=== PATIENT | male | born 1940 | race Caucasian/White ===

== ENCOUNTER → 2018-08-28 09:49 | Outpatient (BNVA) | payer MEDICARE, BC, SELFPAY | PROVIDERS: PCP Family Medicine; Visit Provider Urology | DX: R35.1 Nocturia (principal) | CPT/HCPCS: 99213 ==

== ENCOUNTER 2018-10-06 15:21 | Outpatient (CLI) | payer MEDICARE, BC, SELFPAY ==
--- NOTE | 2018-10-06 13:32 | DI.RAD_ITS ---
SYMPTOM/DIAGNOSIS: KNEE PAIN RIGHT KNEE: Three views. Comparison 05/28/16 Moderately severe narrowing is again seen of the medial femoral tibial joint space. There is periarticular spurring involving all three joint compartments. Chondrocalcinosis is present. There is a small suprapatellar joint effusion. Vascular calcifications are present. IMPRESSION: Moderate degenerative changes of the right knee.
== END 2018-10-06 15:41 ==
PROVIDERS: PCP Family Medicine; Referring Provider Family Medicine; Visit Provider Student in an Organized Health Care Education/Training Program
DX: M25.561 Pain in right knee (principal); M25.461 Effusion, right knee; M17.11 Unilateral primary osteoarthritis, right knee
CPT/HCPCS: 73562; 99213

== ENCOUNTER 2018-12-24 01:22 | Outpatient (CLI) | payer MEDICARE, BC, SELFPAY ==
[2018-12-24 12:32] LABS: CREATININE 1.01 mg/dL (0.70-1.30)
[2018-12-24] MEDS: Omnipaque 350 MG/ML 100 ML BTL IJ (13:10)
[2018-12-24] MEDS: Omnipaque 350 MG/ML 50 ML BTL IJ (13:11)
--- NOTE | 2018-12-24 13:12 | DI.CT_ITS ---
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 TECHNIQUE: Routine noncontrast and postcontrast CTA. COMPARISON: MRI - BRAIN WO CONTRAST from 06/28/2017 FINDINGS: There is mild atrophy and mild white changes of small vessel disease. The ventricles are normal in size. No skull fracture is seen. There is a mucous retention cyst or polyp in the left maxillary si nus. The mastoid air cells are clear. There is mild calcification at the right common carotid bulb. There is no evidence of significant ca rotid stenosis or evidence of dissection. The vertebral arteries are normal in diameter. The intrac ranial vasculature shows no evidence of significant stenosis. No aneurysm is identified. There are no abnormal enhancing lesions. The parotid, submandibular and thyroid glands are unremarkable. Uppe r lobes appear clear. Degenerative changes of the cervical spine. IMPRESSION: No evidence of aneurysm or significant stenosis.
== END 2018-12-24 01:42 ==
PROVIDERS: PCP Family Medicine; Visit Provider Family Medicine
DX: I67.1 Cerebral aneurysm, nonruptured (principal); G31.89 Other specified degenerative diseases of nervous system; R90.82 White matter disease, unspecified
CPT/HCPCS: 70496; 70498; 82565; J3490; Q9967

== ENCOUNTER → 2019-02-19 13:07 | Outpatient (BNVA) | payer MEDICARE, BC, SELFPAY | PROVIDERS: PCP Family Medicine; Referring Provider Family Medicine; Visit Provider Student in an Organized Health Care Education/Training Program | DX: M17.11 Unilateral primary osteoarthritis, right knee (principal) | CPT/HCPCS: 20610; 99213; J1040 ==

== ENCOUNTER 2019-06-11 11:36 | Outpatient (CLI) | payer MEDICARE, BC, SELFPAY ==
--- NOTE | 2019-06-11 11:30 | DI.RAD_ITS ---
EXAM: XR KNEE LT 3V AP,LAT,BERNA CLINICAL HISTORY: PAIN. TECHNIQUE: 2D digital imaging was performed. COMPARISON: XR knee RT 3V AP,lat,berna from 10/06/2018 FINDINGS: BONES: No acute fracture is present. No bony destructive lesion is seen. JOINTS: The knee is normally aligned. No joint effusion is seen. Mild degenerative changes are presen t characterized by mild periarticular spurring of the posterior patella and mild narrowing of the med ial femoral tibial joint space. SOFT TISSUE: Atherosclerosis. IMPRESSION: Mild degenerative changes of the left knee. DATA REPOSITORY: RADIATION DOSE DELIVERED:
== END 2019-06-11 11:56 ==
PROVIDERS: PCP Family Medicine; Referring Provider Family Medicine; Visit Provider Student in an Organized Health Care Education/Training Program
DX: M25.562 Pain in left knee (principal); M17.12 Unilateral primary osteoarthritis, left knee; M17.11 Unilateral primary osteoarthritis, right knee
CPT/HCPCS: 20610; 73562; 99214; J1040

== ENCOUNTER → 2019-10-22 10:35 | Outpatient (BNVA) | payer MEDICARE, BC, SELFPAY | PROVIDERS: PCP Family Medicine; Referring Provider Family Medicine; Visit Provider Student in an Organized Health Care Education/Training Program | DX: M17.12 Unilateral primary osteoarthritis, left knee (principal); M17.11 Unilateral primary osteoarthritis, right knee | CPT/HCPCS: 20610; 99213; J1040 ==

== ENCOUNTER 2019-11-06 16:16 | Outpatient (REF) | payer MEDICARE, BC, SELFPAY ==
[2019-11-06 21:27] LABS: Calculated LDL 94 mg/dL (<100); Cholesterol 172 mg/dL (<200); HDL Cholesterol 48 mg/dL (40-60); Triglyceride 152 mg/dL (<150)
== END 2019-11-06 16:36 ==
LOC: NCHCN 16:16
PROVIDERS: PCP Family Medicine; Visit Provider Family Medicine
DX: E78.5 Hyperlipidemia, unspecified (principal); I67.9 Cerebrovascular disease, unspecified
CPT/HCPCS: 80061

== ENCOUNTER → 2019-11-17 11:23 | Outpatient (BNVA) | payer MEDICARE, BC, SELFPAY | PROVIDERS: PCP Family Medicine; Referring Provider Family Medicine; Visit Provider Urology | DX: N40.1 Benign prostatic hyperplasia with lower urinary tract symptoms (principal); R35.1 Nocturia | CPT/HCPCS: 99213 ==

== ENCOUNTER → 2020-02-15 14:07 | Outpatient (BNVA) | payer MEDICARE, BC, SELFPAY | PROVIDERS: PCP Family Medicine; Referring Provider Family Medicine; Visit Provider Student in an Organized Health Care Education/Training Program | DX: M17.11 Unilateral primary osteoarthritis, right knee (principal) | CPT/HCPCS: 20610; 99213; J1040 ==

== ENCOUNTER → 2020-05-16 12:43 | Outpatient (BNVA) | payer MEDICARE, BC, SELFPAY | PROVIDERS: PCP Family Medicine; Referring Provider Family Medicine; Visit Provider Student in an Organized Health Care Education/Training Program | DX: M17.11 Unilateral primary osteoarthritis, right knee (principal) | CPT/HCPCS: 20610; J1040 ==

== ENCOUNTER 2020-08-22 15:23 | Outpatient (CLI) | payer MEDICARE, BC, SELFPAY ==
--- NOTE | 2020-08-22 13:30 | DI.RAD_ITS ---
Exam(s) XR STANDING ALIGNMENT EXAM: XR STANDING ALIGNMENT CLINICAL HISTORY: eval alignment, presurgical. TECHNIQUE: 2D digital imaging was performed. COMPARISON: No exams were available for comparison FINDINGS: The hips are well maintained. In the right knee, there is moderate medial joint compartment narrowin g. Periarticular spurring is seen both medially and laterally. In the left knee, there is mild narr owing of the medial femoral tibial joint space with mild periarticular spurring. The ankles are well maintained. Portions of the ankle are obscured. Atherosclerosis. IMPRESSION: Osteoarthritis of the knees bilaterally. DATA REPOSITORY: RADIATION DOSE DELIVERED:
== END 2020-08-22 15:24 | disposition home or self-care (01) ==
LOC: DIORS 15:24
PROVIDERS: PCP Family Medicine; Referring Provider Family Medicine; Visit Provider Student in an Organized Health Care Education/Training Program
DX: M17.11 Unilateral primary osteoarthritis, right knee (principal); M17.12 Unilateral primary osteoarthritis, left knee
CPT/HCPCS: 99213; 77073

== ENCOUNTER 2020-09-05 02:37 | Outpatient (CLI) | payer MEDICARE, BC, SELFPAY ==
[2020-09-05 11:57] LABS: Source Nasal/Nares
[2020-09-05 14:48] LABS: COVID-19 PCR Negative (Negative)
== END 2020-09-05 02:38 | disposition home or self-care (01) ==
PROVIDERS: PCP Family Medicine; Visit Provider Student in an Organized Health Care Education/Training Program
DX: Z20.822 Contact with and (suspected) exposure to COVID-19 (principal); Z01.818 Encounter for other preprocedural examination
CPT/HCPCS: 87635

== ENCOUNTER 2020-09-05 03:20 | Outpatient (CLI) | payer MEDICARE, BC, SELFPAY ==
[2020-09-05 11:26] LABS: HCT 40.5 % (40.0-50.0); HGB 13.4 g/dL (13.5-17.5); MCH 32.6 pg (27.0-33.0); MCHC 33.1 % (32.0-36.0); MCV 98.5 fL (80-95); MPV 9.7 fL (8.0-11.0); Platelet Count 261 10^3/uL (130-400); RBC 4.11 10^6/uL (4.36-5.78); RDW 13.2 % (11.8-14.1); WBC 7.68 10^3/uL (4.4-10.8)
[2020-09-05 12:38] LABS: Anion Gap 7.8 mmol/L (3-11); BUN 14 mg/dL (7-18); CO2 29.2 mmol/L (21.0-32.0); CREATININE 1.1 mg/dL (0.70-1.30); Calcium 9.1 mg/dL (8.5-10.1); Chloride 108 mmol/L (98-107); Glucose 104 mg/dL (74-106); Potassium 4.3 mmol/L (3.5-5.1); Sodium 145 mmol/L (136-145)
== END 2020-09-05 03:21 | disposition home or self-care (01) ==
LOC: LBO 03:20
PROVIDERS: PCP Family Medicine; Visit Provider Student in an Organized Health Care Education/Training Program
DX: M25.561 Pain in right knee (principal); M17.11 Unilateral primary osteoarthritis, right knee; Z01.818 Encounter for other preprocedural examination; Z01.812 Encounter for preprocedural laboratory examination
CPT/HCPCS: 36415; 80048; 85027; 87635

== ENCOUNTER 2020-09-07 05:49 | Day surgery (SDC) | payer MEDICARE, BC, SELFPAY ==
[2020-09-07] VITALS (10 sets, daily range): BP systolic 120–135; BP diastolic 49–83; PULSE 68–87; RESP 15–21; TEMP 36.2–36.7; O2SAT 92–98; BMI 32.8
[2020-09-07] MEDS: Acetaminophen 500 MG TAB 1000 MG PO (06:15)
[2020-09-07] MEDS: Gabapentin 300 MG CAP PO (06:15)
[2020-09-07] MEDS: Celecoxib 200 MG CAP 400 MG PO (06:16)
[2020-09-07] MEDS: Lactated Ringers 1,000 ML 80 ML IV (06:16)
--- NOTE | 2020-09-07 06:34 | W.ANESPRE ---
General Info Date of Service Date Performed: 09/07/20 Height: 5 ft 6 in Weight: 92.2 kg Body Mass Index (BMI): 32.8 Surgical Procedure: Operation Date: 09/07/20 07:40 Proposed Procedures Side Surgeon p Knee Total Arthroplasty Right Lalit Dwyer MD Meds Allergies and Home Medications Allergies Allergy/AdvReac Type Severity Reaction Status Date / Time No Known Allergies Allergy Unverified 09/07/20 06:05 Home Medication Medication Instructions Recorded clopidogrel 75 mg PO DAILY tab-cap 05/25/14 escitalopram oxalate [Lexapro] 20 mg PO DAILY tab-cap 05/25/14 atorvastatin 40 mg tablet 40 mg PO HS 09/01/20 buspirone 15 mg tablet 22.5 mg PO BID tab-cap 09/01/20 memantine 10 mg tablet 10 mg PO BID 09/01/20 mirtazapine 15 mg tablet 15 mg PO DAILY 09/01/20 Current Visit Medications: Current Medications Generic Name Dose Route Start Last Admin Trade Name Freq PRN Reason Stop Dose Admin Acetaminophen 1,000 mg 09/07/20 06:00 09/07/20 06:15 Acetaminophen 500 Mg Tab PO 09/07/20 16:00 1,000 mg PREOP JOVAN Administration Celecoxib 400 mg 09/07/20 06:00 09/07/20 06:16 Celecoxib 200 Mg Cap PO 09/07/20 16:00 400 mg PREOP JOVAN Administration Gabapentin 300 mg 09/07/20 06:00 09/07/20 06:15 Gabapentin 300 Mg Cap PO 09/07/20 16:00 300 mg PREOP JOVAN Administration Tranexamic Acid 1,000 mg/ 60 mls @ 360 mls/hr 09/07/20 06:00 Sodium Chloride IVPB 09/07/20 16:00 PREOP JOVAN Tranexamic Acid 1,000 mg/ 60 mls @ 360 mls/hr 09/07/20 06:00 Sodium Chloride IVPB 09/07/20 16:00 DIRECTED JOVAN Ringer's Solution 1,000 mls @ 80 mls/hr 09/07/20 06:00 09/07/20 06:16 IV 10/06/20 23:59 80 mls/hr INFUSION JOVAN Administration Cefazolin Sodium/Dextrose 2 gm in 50 mls @ 100 mls/hr 09/07/20 06:00 Ancef Duplex IVPB 09/07/20 16:00 PREOP JOVAN IV Miscellaneous Supplies 1 each 09/07/20 06:00 Iv Access IV 10/06/20 23:59 DIRECTED JOVAN Sodium Chloride 0 ml 09/07/20 06:00 Normal Saline Flush 10 Ml Syr IV 10/06/20 23:59 PRN PRN Sodium Chloride 0 ml 09/07/20 06:00 Normal Saline 10 Ml Vial IJ 10/06/20 23:59 DIRECTED PRN Sterile Water 0 ml 09/07/20 06:00 Water,Injection,Sterile 10 Ml Vial IJ 10/06/20 23:59 DIRECTED PRN PFSH Active Problems Active Problems: Problem Status Onset Code Osteoarthritis of left knee M17.12 Primary localized osteoarthritis of right knee M17.11 Medical History Medical History Carpal tunnel syndrome on both sides (05/25/14) Frequency of urination (07/06/15) Nocturia more than twice per night (07/06/15) Osteoarthritis of left knee Tendinitis of both rotator cuffs (12/19/16) TIA (transient ischemic attack) Surgical History Surgical History Shoulder Manipulation Tobacco Smoking/Tobacco Use Status: Former Tobacco Use Alcohol Alcohol Intake: never Substance Use Substance use: Never Substance use type: does not use Vital Signs and Lab Results Vital Signs Most Recent Vital Signs in EMR: Most Recent Vital Signs Temp Pulse Resp BP Pulse Ox 36.6 C 68 18 134/80 95 09/07/20 06:00 09/07/20 06:00 09/07/20 06:00 09/07/20 06:00 09/07/20 06:00 Lab Results Blood Type / Crossmatch: No Data to Display Complete Blood Count: White Blood Count 7.68 10^3/uL (4.4-10.8) 09/05/20 11:05 09/05/20 Red Blood Count 4.11 10^6/uL (4.36-5.78) L 09/05/20 11:05 09/05/20 Hemoglobin 13.4 g/dL (13.5-17.5) L 09/05/20 11:05 09/05/20 Hematocrit 40.5 % (40.0-50.0) 09/05/20 11:05 09/05/20 Platelet Count 261 10^3/uL (130-400) 09/05/20 11:05 09/05/20 Complete Metabolic Panel: Sodium Level 145 mmol/L (136-145) 09/05/20 11:05 09/05/20 Potassium Level 4.3 mmol/L (3.5-5.1) 09/05/20 11:05 09/05/20 Chloride Level 108 mmol/L (98-107) H 09/05/20 11:05 09/05/20 Carbon Dioxide Level 29.2 mmol/L (21.0-32.0) 09/05/20 11:05 09/05/20 Blood Urea Nitrogen 14 mg/dL (7-18) 09/05/20 11:05 09/05/20 Creatinine 1.1 mg/dL (0.70-1.30) 09/05/20 11:05 09/05/20 Estimated GFR/1.73 m2 >= 60.00 (mL/min/1.73m2) 09/05/20 11:05 09/05/20 Calcium Level 9.1 mg/dL (8.5-10.1) 09/05/20 11:05 09/05/20 Glucose Level 104 mg/dL (74-106) 09/05/20 11:05 09/05/20 Liver Function Panel: No Data to Display Coagulation Panel: No Data to Display Cardiac Panel: No Data to Display Arterial Blood Gas: No Data to Display Venous Blood Gas: No Data to Display Pancreas Panel: No Data to Display Thyroid Panel: No Data to Display Infectious Disease: Coronavirus (COVID-19)(PCR) Negative (Negative) 09/05/20 10:48 09/05/20 Coronavirus 2019 Source Nasal/Nares 09/05/20 10:48 09/05/20 Blood Cultures: No Data to Display Toxicology Panel: No Data to Display Imaging and Studies Imaging and Studies Stress Test Summary: 05/20/14:Negative for ischemia. CT Summary: 12/24/18: CTA Head & Neck: MPRESSION: No evidence of aneurysm or significant stenosis. 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 No evidence of an acute infarct or intracranial mass. Anesthesia Assessment and Plan Anesthesia History Personal History: No History of General Anesthesia Family History: No Family History of Anesthesia Complications Exercise Tolerance Exercise Tolerance: Metabolic Equivalents>4 Pertinent Negatives Pertinent Negatives: No Symptoms of GERD, No Major Cardiovascular Symptoms or Complaints (Last plavix 09/02), No Major Pulmonary Symptoms or Complaints (LEONILA Cpap compliant. ) and No History of CVA/TIA (hx of TIA x1 no other incidences, no residual symptoms ) Cardiac & Pulmonary Exam Cardiac Exam: Normal S1/S2 Heart Sounds Pulmonary Exam: Clear Bilateral Breath Sounds Airway Exam Known Difficult Airway: No Mallampati Class: 3 Mouth Opening: Narrow (< 3cm) Thyromental Distance: Less than 3 cm Neck Range of Motion: Full ROM Neck Circumference: Thick Teeth Condition: Normal Dentition ASA Classification ASA Score: ASA 3 Emergency Case?: No NPO Status NPO Status: NPO Clears >2 hours, Solids >8 hours Anesthesia Plan Resuscitation Status: Full Code Anesthesia Technique: Spinal Anesthesia Airway Planned: Natural Airway Monitors Used: Standard Monitors
--- NOTE | 2020-09-07 07:32 | W.PM.DS.N ---
Date of service: 09/07/20 DS: Diagnosis Discharge Diagnosis (1) Primary localized osteoarthritis of right knee: Status: Acute Discharge Plan Disposition Patient Disposition: HOME Condition: Stable Discharge Details Reason For Visit: Right TKA Attending Provider: Lalit Dwyer Primary Care Provider: Parker Valdivia Home Meds and New Rx's Prescriptions: No Action atorvastatin 40 mg tablet 40 mg PO HS RF: 0 mirtazapine 15 mg tablet 15 mg PO DAILY RF: 0 memantine 10 mg tablet 10 mg PO BID RF: 0 clopidogrel 75 MG tablet 75 mg PO DAILY RF: 0 escitalopram oxalate [Lexapro] 20 MG tablet 20 mg PO DAILY RF: 0 buspirone 15 mg tablet 22.5 mg PO BID RF: 0 DS: Data Vitals/I&O Vitals and I&O: Vital Signs Temperature 97.9 F 09/07/20 06:00 Pulse 68 09/07/20 06:00 Pulse Rhythm Regular 09/07/20 06:00 Respiratory Rate 18 09/07/20 06:00 Respiratory Depth Normal 09/07/20 06:00 Blood Pressure 134/80 09/07/20 06:00 Pulse Oximetry 95 09/07/20 06:00 Oxygen Delivery Method Room Air 09/07/20 06:00 Oxygen Flow Rate 0 09/07/20 06:00 Intake & Output 09/06/20 09/06/20 09/07/20 11:59 23:59 11:59 Weight 203 lb 4.259 oz PFSH Medical History Carpal tunnel syndrome on both sides (05/25/14) Frequency of urination (07/06/15) Nocturia more than twice per night (07/06/15) Osteoarthritis of left knee Tendinitis of both rotator cuffs (12/19/16) TIA (transient ischemic attack) Surgical History Shoulder Manipulation Family History Mother Colon cancer Father Lung cancer Social History Smoking/Tobacco Use Status: Former Tobacco Use Quit Date: 03/18/00 Smoking risk assessment performed?: Yes Alcohol Intake: never Drug use: Never Substance use type: does not use Additional Social history: Unable to assess joellen
--- NOTE | 2020-09-07 07:35 | PDOC.DSDIS_ITS ---
Documented by User: CHELSEY Alvarez 09/07/20 07:36 Discharge Plan Disposition Patient Disposition: HOME Condition: Stable Discharge Details Reason For Visit: Right TKA Attending Provider: Lalit Dwyer Primary Care Provider: Parker Valdivia Home Meds and New Rx's Prescriptions: New celecoxib [Celebrex] 200 mg capsule 200 mg PO BID Qty: 60 RF: 0 aspirin 81 mg tablet,delayed release (DR/EC) 81 mg PO BID Qty: 60 RF: 0 acetaminophen [Tylenol Extra Strength] 500 mg tablet 500 mg PO Q6H PRNQty: 90 RF: 0 pantoprazole [Protonix] 40 mg tablet,delayed release (DR/EC) 40 mg PO DAILY Qty: 30 RF: 0 gabapentin 300 mg capsule 300 mg PO QHS Qty: 14 RF: 0 oxycodone 5 mg tablet 5 mg PO Q4H PRNQty: 18 RF: 0 Continued atorvastatin 40 mg tablet 40 mg PO HS RF: 0 mirtazapine 15 mg tablet 15 mg PO DAILY RF: 0 memantine 10 mg tablet 10 mg PO BID RF: 0 clopidogrel 75 MG tablet 75 mg PO DAILY RF: 0 escitalopram oxalate [Lexapro] 20 MG tablet 20 mg PO DAILY RF: 0 buspirone 15 mg tablet 22.5 mg PO BID RF: 0 Discharge Instructions Additional Instructions: Total Knee Discharge Instructions Activity: The most important activity is to walk. You should try to take short walks a few times a day. It is important that when resting you work on keeping the knee straight. Avoid putting a pillow behind the knee as this will encourage flexion. Work on range of motion exercises as provided by Physical Therapy. - Start outpatient physical therapy within 2 weeks. - You should wear the CALEB hose on both legs for 2 weeks. You may remove these at night. You may also use any compression sock in place of the CALEB hose. Dressing: You may remove the Geo wrap on your leg 2 days after your surgery and put on the CALEB stocking given to you from the hospital. Keep the surgical dressing (underneath the GEO wrap) in place for at least one week. After the first week it may be removed and replaced with light gauze and tape or nothing. The wound and dressing may get wet after 3 days but avoid soaking the dressing or otherwise it will need to be changed. Many people prefer covering the dressing with cling wrap (saran wrap) to minimize it from getting soaked. If it gets wet, just pat dry. If it starts to peel off then it will need to be changed. Medications: - You should take Tylenol and anti-inflammatory Celebrex as your primary pain control medications. If the Celebrex is too expensive or not covered, please call the office for another alternative (Advil/Ibuprofen or Naproxen/Aleve) - You have been prescribed a stronger pain medication Oxycodone for breakthrough pain, take as needed as prescribed. - You have also been prescribed a stomach acid reduction agent Pantoprozole to help reduce stomach acid and reflux. - You have been prescribed Gabapentin to take at night for restlessness and nerve pain for the first 7 days. - You will be taking Aspirin 81mg twice a day for DVT prevention in addition to your Plavix unless instructed otherwise. - If you have constipation you should take Colace or Miralax (both o [id number]). It takes most people 3-4 days to have a bowel movement. Follow-up: 2 weeks If you have any acute concerns or questions, please do not hesitate to contact the office at [phone]. You may contact Dr. Dwyer with any questions after hours through the hospital at [phone] or on his cell phone at [phone]. Referrals: Lalit Dwyer MD [ [facility] STAFF PHYSICIAN] - Equipment/Supplies: Walker Activity:: Activity as Tolerated Remove Dressings/Wound Care:: Do Not Remove Shower/Bathe:: 72 hours Diet:: As Tolerated Discharge Orders Discharge Orders: Discharge Order (Routine); Ordered 09/07/20 Ordered By: Lalit Dwyer DS: Diagnosis Discharge Diagnosis (1) Primary localized osteoarthritis of right knee: Status: Acute Documented by User: Lalit Dywer MD 09/07/20 10:41 Discharge Plan Disposition Patient Disposition: HOME Condition: Stable Discharge Details Reason For Visit: Right TKA Attending Provider: Lalit Dwyer Primary Care Provider: Parker Valdivia [place] Meds and New Rx's Prescriptions: New celecoxib [Celebrex] 200 mg capsule 200 mg PO BID Qty: 60 RF: 0 aspirin 81 mg tablet,delayed release (DR/EC) 81 mg PO BID Qty: 60 RF: 0 acetaminophen [Tylenol Extra Strength] 500 mg tablet 500 mg PO Q6H PRNQty: 90 RF: 0 pantoprazole [Protonix] 40 mg tablet,delayed release (DR/EC) 40 mg PO DAILY Qty: 30 RF: 0 gabapentin 300 mg capsule 300 mg PO QHS Qty: 14 RF: 0 oxycodone 5 mg tablet 5 mg PO Q4H PRNQty: 18 RF: 0 Continued atorvastatin 40 mg tablet 40 mg PO HS RF: 0 mirtazapine 15 mg tablet 15 mg PO DAILY RF: 0 memantine 10 mg tablet 10 mg PO BID RF: 0 clopidogrel 75 MG tablet 75 mg PO DAILY RF: 0 escitalopram oxalate [Lexapro] 20 MG tablet 20 mg PO DAILY RF: 0 buspirone 15 mg tablet 22.5 mg PO BID RF: 0 Discharge Instructions Additional Instructions: Total Knee Discharge Instructions Activity: The most important activity is to walk. You should try to take short walks a few times a day. It is important that when resting you work on keeping the knee straight. Avoid putting a pillow behind the knee as this will encourage flexion. Work on range of motion exercises as provided by Physical Therapy. - Start outpatient physical therapy within 2 weeks. - You should wear the CALEB hose on both legs for 2 weeks. You may remove these at night. You may also use any compression sock in place of the CALEB hose. Dressing: You may remove the Geo wrap on your leg 2 days after your surgery and put on the CALEB stocking given to you from the hospital. Keep the surgical dressing (underneath the GEO wrap) in place for at least one week. After the first week it may be removed and replaced with light gauze and tape or nothing. The wound and dressing may get wet after 3 days but avoid soaking the dressing or otherwise it will need to be changed. Many people prefer covering the dressing with cling wrap (saran wrap) to minimize it from getting soaked. If it gets wet, just pat dry. If it starts to peel off then it will need to be changed. Medications: - You should take Tylenol and anti-inflammatory Celebrex as your primary pain control medications. If the Celebrex is too expensive or not covered, please call the office for another alternative (Advil/Ibuprofen or Naproxen/Aleve) - You have been prescribed a stronger pain medication Oxycodone for breakthrough pain, take as needed as prescribed. - You have also been prescribed a stomach acid reduction agent Pantoprozole to help reduce stomach acid and reflux. - You have been prescribed Gabapentin to take at night for restlessness and nerve pain for the first 7 days. - You will be taking Aspirin 81mg twice a day for DVT prevention in addition to your Plavix unless instructed otherwise. - If you have constipation you should take Colace or Miralax (both [id number]). It takes most people 3-4 days to have a bowel movement. Follow-up: 2 weeks If you have any acute concerns or questions, please do not hesitate to contact [facility] office at [phone]. You may contact Dr. Dwyer with any questions after hours through the hospital at [phone] or on his cell phone at [phone]. Referrals: Lalit Dwyer MD [ [facility] STAFF PHYSICIAN] - Equipment/Supplies: Walker Activity:: Activity as Tolerated Remove Dressings/Wound Care:: Do Not Remove Shower/Bathe:: 72 hours Diet:: As Tolerated Discharge Orders Discharge Orders: Discharge Order (Routine); Ordered 09/07/20 Ordered By: Lalit Dwyer
[2020-09-07] MEDS: ceFAZolin 2 GM/50 ML BAG IVPB (07:36)
--- NOTE | 2020-09-07 08:18 | W.ANESNERVE ---
Nerve Block Single Injection Procedure Date and Time Date Performed: 09/07/20 Procedure Start: 07:25 Location Where Procedure Performed Procedure Location: PACU Reason Performed: Postoperative Analgesia Requesting Provider: Lalit Dwyer Timeout Performed Timeout Performed: Yes Monitoring Used ECG, Blood Pressure and SpO2 Sterility Sterility: Hand Hygiene, Surgical Cap, Surgical Mask, Sterile Gloves, Eye Protection and Chlorhexidine Sedation Given During Procedure Sedation Given (Indicate Dose Given): No Sedation given Patient Mental Status Patient Mental Status: Awake Nerve Block 1st Nerve Block: Laterality: Right Block Type: Adductor Canal Needle / Catheter Used: 120mm SonoPlex II Local Anesthetic Bolus (Indicate Dose Given): Lidocaine used for local infiltration of skin, Injected in 3-5ml increments after negative blood aspiration and Bupivacaine 0.25% Dose:: 15 cc Additives (Indicate Dose Given): None Ultrasound: Sterile probe cover and gel used Ultrasound Image Saved?: Yes Nerve Stimulator: Not Used Paresthesia: None Procedure Tolerated: No Complications and Patient tolerated well Procedure Outcome: Successful Performed By: Varsha Nguyen Supervised By: Virginia Miner
[2020-09-07] MEDS: Normal Saline 20 ML VIAL (08:50)
[2020-09-07] MEDS: Ketorolac 30 MG/ML VIAL (08:52)
[2020-09-07] MEDS: Bupivacaine 0.25% Pres-Free 30 ML VIAL (08:52)
--- NOTE | 2020-09-07 09:39 | W.PM.OP ---
Date of service: 09/07/20 Time of Service: 09:20 Operative Note Operative Note DATE OF PROCEDURE: 09/07/20 PRE-OP DIAGNOSIS: Right Knee Osteoarthritis POST-OP DIAGNOSIS: same PROCEDURE: Right Total Knee Replacement SURGEON: Lalit Dwyer EMERGENCY DEPARTMENT MANAGER: Meggan Krause Refer to Anesthesia Record PATHOLOGY: none sent TOURNIQUET TIME: 0 COMPLICATIONS: None Patient was transported to: PACU Patient's condition: stable Implants: 1. Depuy Attune Cementless Cruciate Retaining Femoral Component, Size 6 2. Depuy Attune Cementless Rotating Platform Tibial Component, Size 5 3. Depuy Attune 6x5mm CR/RP Poly 4. Depuy Attune Patellar Component, Size 38mm Indications: I have seen Nathen in clinic for symptoms of knee arthritis, confirmed with radiographic findings. Nathen has exhausted nonoperative methods and was having significant limitations in daily function and desired better function and less pain. I discussed the technical details of a knee replacement. I explained the risks of the procedure to include, but not limited to, bleeding, infection, pain, stiffness, fracture, damage to nerves and vessels, damage to muscles and tendons, loosening, need for repeat procedure, blood clot and cardiopulmonary demise. Despite these risks, he elected to proceed. Findings: There was significant signs of arthritis mostly within the medial compartment and isolated within the central region of the patella and the lateral tibia. Procedure Description: Nathen was greeted in the preoperative holding area where the correct side was identified and marked. The consent was reviewed with the patient and signed. The history and physical was updated. All questions were answered. Preoperative medications were administered: Acetaminophen 1000mg, Celebrex 400mg, and Gabapentin 300mg. An adductor canal block was then administered by the anesthesia team in the PACU. He was taken back to the operating room. A spinal anesthestic was then administered. The patient was placed into the supine position on the operating room table. A nonsterile tourniquet was placed high onto the leg but only used for cementing. Posts were placed for positioning during the procedure. All bony prominences were well padded. Prophylactic antibiotics in the form of Cefazolin were administered. 1g of Tranxemic Acid was given intravenously within 30 minutes of incision. The right leg was then prepped with Chloraprep and draped in a standard fashion with impervious stockinette. A second prep with Chloraprep was performed prior to application of Iodine impregnated skin protection. A timeout to confirm correct identity, side and site, procedure, allergies, anesthesia, and medical concerns was performed. With the knee in some flexion, a midline incision was made overlying the knee. Full thickness skin flaps were raised once the extensor mechanism was encountered. These were raised medially and laterally. Any bleeding was controlled with electrocautery. Once the extensor mechanism was fully exposed, a medial parapatellar arthrotomy was performed in a flexed position. All bleeding from the arthrotomy and the geniculate arteries was coagulated. A medial subperiosteal peel was performed with electrocautery to the midcoronal plane. The fat pad was removed while keeping the patellar tendon protected. The anterior distal femur synovium was removed for later visualization. The ACL and PCL were resected and the anterior horn of the lateral meniscus was transected. The knee was then flexed with the patella everted. Using a step drill, and based on preoperative templating, the femoral canal was entered. This was done with a step drill without any difficulty. The intramedullary distal femoral cut guide was inserted, set to a 5 degree valgus cut and 9mm cut thickness. The distal femoral cut guide was then held in position and pinned. With the soft tissues protected, the distal cut was performed. This was passed over a few times to ensure a planar cut. I then turned attention to the tibia. The extramedullary guide was placed onto the leg. The distal aspect was slid medial to adjust for position of center of ankle and stay in line with shaft of the tibia. Approximately 3-5 degrees of posterior slope was kept in the proximal cutting guide. The center of the guide was aligned with the PCL. The stylus was used to assess cut thickness. The medial side, most involved side, was set for a 2mm cut. This was then held in position and pinned into place with 2 additional pins and a cross pin for stability. The medial and lateral collateral ligaments were protected and the cut was performed. With this completed, it was assessed and noted to be of appropriate dimensions. The guide was removed. A spacer block was inserted and the knee was brought into extension. The 5mm spacer block provided full extension, without hyperextension and with stability of both the medial and lateral collateral ligaments was assessed. The pins from the femur and the tibia were then removed. The distal femur was then sized. The anterior stylus was placed onto the lateral ridge of the anterior femur. This indicated a size 6 femur. The external rotation of the guide was adjusted to 3 degrees to match the epicondylar axis, perpendicular to Hebron?s line. The 4-in-1 cutting guide was the placed. The posterior medial femur cut was evaluated and appeared of good thickness. The spacer block was inserted underneath the cutting guide and stability was confirmed in 90 degrees of flexion. An misha wing was used to confirm appropriate position of the anterior cut to avoid notching. This cutting guide was ensured to be flush on the cut surface and then pinned into place with headed pins. While protecting the soft tissues, quad tendon, and collateral ligaments, the anterior and posterior cuts were performed with a saw. The central two pins were removed and the posterior and anterior chamfers were cut next. The notch-cutting guide was placed. This was pinned to lateralize the femoral component as much as possible while keeping it flush on the cut surface. This was then pinned into position. A reciprocating saw was used to make the notch cut. A rasp smoothed the cut surfaces. The medial and lateral menisci were removed. A trial femoral component was then inserted, impacted down to the cut surfaces, and the lug holes were drilled. A provisional trial tibial component was placed and the knee was brought through range of motion. There was noted to be excellent extension and flexion. There was no significant instability. The patella was tracking without thumbs. A size 5mm polyethylene component provided the best range of motion and stability with less than 2mm gapping with medial and lateral stress and full extension without significant hyperextension. The tibial cut surface was fully exposed. The tibia was then sized as a 5. The tibia had been previously marked during trialing to correspond to the center of the tibial component to help with rotation. The trial was aligned to this meggan, approximately rotated to the medial 1/3rd of the tibial tubercle. The trial was pinned into place. The tibia was prepared with a reamer and a keel punch and lug holes. The knee was then brought into extension and the patella was measured as 23mm. Using the patellar clamp and cut guide, this was resected to a flat surface with at least 13mm of thickness remaining. The size 38 patella fit the best. This was oriented and then clamped into position. The lugs were drilled. The trial components were removed. The final components were opened on the back table. The periosteal and capsular tissues, especially posteriorly, around the knee were then systematically injected with a periarticular cocktail consisting of 50cc 0.25% Marcaine, 30mg Ketorolac, 20cc of Exparal and 50cc of injectable saline. The knee was thoroughly irrigated with a pulse lavage and dried. Irrisept was also used to irrigate the tissues. On the back table, with the implants opened, the cement was mixed. One batch of high viscosity cement was prepared with vacuum assistance. After the cement was ready a small amount was placed on the cut surface of the patella and the patellar button was clamped into position and held. While the cement was hardening, the cementless knee components were placed. Starting with the tibial component, the tibia was subluxed anteriorly and the lug holes of the component were lined up. The tibia was then impacted with an impactor and mallet until the tibial component was in contact with the tibia. The final polyethylene component was inserted. Then, the femoral component was inserted. The lug holes were aligned and the component was impacted into position. The knee was irrigated with Irrisept chlorhexadine solution. This was allowed to sit in the knee for 3 minutes. After the cement had finally cured, approximately 15min, the clamp was removed from the patella and the knee was taken through range of motion. The patella was tracking with a no-thumbs technique. The capsule was then reapproximated with a No. 1 Vicryl at multiple locations. The capsule was finally closed with a No. 2 Stratafix, barbed suture. The second dosing of 1g TXA was started. Deep tissues were then reapproximated with 0 Vicryl and 2-0 Vicryl. The skin was closed with a running 3-0 Monocryl in a subcuticular fashion. This was reinforced with skin glue. A Mepilex silver dressing was applied along with a [id number] ISABELLA wrap. A CryoCuff was applied. Nathen was transferred to the hospital bed without difficulty an suffering no apparent complication. He has a good prognosis. Physical therapy will start today and without restrictions, weight-bearing as tolerated. Aspirin 81mg BID and his baseline Plavix will be used for DVT prophylaxis.
--- NOTE | 2020-09-07 09:50 | W.ANESPOSTOP ---
Postoperative Evaluation Date, Time and Location Date Performed: 09/07/20 Time Performed: 09:50 Patient Location: PACU Vital Signs Most Recent Imported Vital Signs: Most Recent Vital Signs Temp Pulse Resp BP Pulse Ox 36.7 C 79 15 128/59 L 98 09/07/20 09:44 09/07/20 09:44 09/07/20 09:44 09/07/20 09:44 09/07/20 09:44 Pain Score Most Recent Pain Score: Most Recent Pain Score Pain Level 0 09/07/20 09:44 Assessment Mental Status: Awake (Alert & Oriented to Patient Baseline) Airway and Respiratory Function: Patent airway with normal (patient baseline) respiratory exam Cardiovascular Function: Hemodynamically Stable Hydration Status: Adequately Hydrated Nausea & Vomiting: No Nausea or Vomiting Pain: Pt. Denies Any Pain Peripheral Nerve Block: Regional nerve block not resolved at time of post operative discharge
[2020-09-07] MEDS: oxyCODONE 5 MG TAB PO (11:35)
--- NOTE | 2020-09-07 11:40 | PT.INIE ---
Date of service: 09/07/20 Time of Service: 11:00 PT Notes Visit Reasons: Right TKA Inpatient Physical Therapy Evaluation Date: 09/07/20 Referring Doctor: Shania Melendez PT Orders: PT CONSULT: s/p right TKA Precautions: fall, standard Patient Profile/Admitting Diagnosis: Patient seen post-op day 0 s/p right TKA. PMHX: Carpal tunnel syndrome on both sides (05/25/14) Frequency of urination (07/06/15) Nocturia more than twice per night (07/06/15) Osteoarthritis of left knee Tendinitis of both rotator cuffs (12/19/16) TIA (transient ischemic attack) Surgical History Shoulder Manipulation Social History/Home Situation: Patient lives with his of 61 years in a multi-level home with 3 JORDAN. He plans to stay on the lower level for the time being. He typically ambulates without assistance and remains very active at home. Equipment Owned/DME: none Subjective: Solomon states that he is feeling really good. He has no pain. He's agreeable to PT consultation. Objective: General Observation: Resting in bed with IV in RUE. Mental Status: A&O. Pleasant and cooperative throughout. Frequently defers to for answers. Pain: 0/10 Vital Signs: BP monitored by nursing throughout ROM: Right Upper Extremity: Grossly WFL Left Upper Extremity: Grossly WFL Right Lower Extremity: Right knee motion 0-90 degrees functionally. Left Lower Extremity: WFL Strength: Right Upper Extremity: Triceps 5/5 Left Upper Extremity: Triceps 5/5 Right Lower Extremity: Patient able to perform SLR without extension lag. Able to pump ankle and wiggle toes. Left Lower Extremity: WFL Sensation: intact distally Bed Mobility/Transfers: supine-sit: independent sit-stand: supervision stand-sit: supervision with cues for technique Gait: Patient received gait training, and was able to ambulate 25'x3 with CGA and FWW. He requires cues for WW management. Stairs: Patient ascended and descended 6 stairs x 2 with bilat rails and CGA. Balance: Static Sitting: normal Dynamic Sitting: normal Static Standing: good Dynamic Standing: fair Special Tests: Mobility Limitations Standardized Measure [facility] 6 clicks Basic Mobility Inpatient Short Form: Raw Score: 23 CMS Score: 11% deficit Informed Consent/Education: Patient instructed in purpose of PT consult and plan of care. Assessment: Patient is a 79 year old male referred to physical therapy services with the diagnosis of right knee OA, post op day 0 s/p right TKA. Patient presents with clinical signs and symptoms consistent with diagnosis, as demonstrated by the following impairment level findings: 1. functional quad weakness consistent with post-op status 2. gait impairments 3. decreased activity tolerance Impairments are contributing to the following functional limitations: 1. decreased tolerance to household ambulation 2. unable to ambulate at baseline level of function (without AD) 3. unable to reciprocally manage stairs Patient is assessed as Moderate 90027 complexity based on the following: History: patient is a 79 year old male, post -op day 0 following right TKA. PT consult was requested for gait and transfer training, after which patient was able to demonstrate safe mobility sufficient to allow for safe return home. Examination: functional limitations as noted above Presentation: evolving Decision Making: moderate complexity Plan of Care/Treatment Plan: D/C from PT in acute care setting DISCHARGE RECOMMENDATIONS: outpatient PT TREATMENT CODE/TIME: 11:00-11:25 ([id number]) Mabel Disla, PT, DPT [facility]
== END 2020-09-07 12:50 | disposition home or self-care (01) ==
PROVIDERS: PCP Family Medicine; Visit Provider Student in an Organized Health Care Education/Training Program
PROC: (CPT 27447; principal; 2020-09-07 07:30)
DX: M17.11 Unilateral primary osteoarthritis, right knee (principal)
CPT/HCPCS: 27447; 76942; 97162; J0690; J1100; J1885; J2001; J2405

== ENCOUNTER 2020-09-22 11:03 | Outpatient (CLI) | payer MEDICARE, BC, SELFPAY ==
--- NOTE | 2020-09-22 10:15 | DI.RAD_ITS ---
Exam(s) XR STANDING ALIGNMENT XR KNEE RT 1V EXAM: XR STANDING ALIGNMENT CLINICAL HISTORY: 1ST POST OP R TKA. TECHNIQUE: 2D digital imaging was performed. Standing AP views were performed from the pelvis throu gh the ankles. COMPARISON: CR XR STANDING ALIGNMENT from 08/22/2020 CR XR KNEE RT 1V from 09/22/2020 CR XR KNEE RT 1V from 09/22/2020 FINDINGS: BONES: No acute fracture is present. No bony destructive lesion is seen. There is a mild overall leg length discrepancy with the left femoral head projecting a few millimeters superior to the right. JOINTS: Knees: A right total knee prosthesis has been placed since the previous exam. The alignmen t appears satisfactory. There are no surrounding bony lucencies. The left knee shows medial femoral tibial joint space narrowing. The ankles show mild degenerative changes medially. The hip joints are unremarkable. SOFT TISSUE: Vascular calcifications. IMPRESSION: Mild leg length discrepancy. Status post right total knee prosthesis. DATA REPOSITORY: RADIATION DOSE DELIVERED:
== END 2020-09-22 11:04 | disposition home or self-care (01) ==
LOC: DIORS 11:11
PROVIDERS: PCP Family Medicine; Referring Provider Family Medicine; Visit Provider Physician Assistant Surgical
DX: Z96.651 Presence of right artificial knee joint (principal); Z47.1 Aftercare following joint replacement surgery
CPT/HCPCS: 73560; 77073

== ENCOUNTER → 2020-10-24 12:49 | Outpatient (BNVA) | payer MEDICARE, BC, SELFPAY | PROVIDERS: PCP Family Medicine; Referring Provider Family Medicine; Visit Provider Student in an Organized Health Care Education/Training Program | DX: Z47.1 Aftercare following joint replacement surgery (principal); Z96.651 Presence of right artificial knee joint; M17.11 Unilateral primary osteoarthritis, right knee ==

== ENCOUNTER 2020-10-31 02:44 | Outpatient (CLI) | payer MEDICARE, BC, SELFPAY ==
[2020-10-31 12:39] LABS: Source Nasal/Nares
[2020-10-31 18:38] LABS: COVID-19 PCR Negative (Negative)
== END 2020-10-31 02:45 | disposition home or self-care (01) ==
LOC: LBO 02:44
PROVIDERS: PCP Family Medicine; Visit Provider Student in an Organized Health Care Education/Training Program
DX: Z20.822 Contact with and (suspected) exposure to COVID-19 (principal); Z01.818 Encounter for other preprocedural examination
CPT/HCPCS: 87635

== ENCOUNTER 2020-11-01 11:13 | Day surgery (SDC) | payer MEDICARE, BC, SELFPAY ==
[2020-11-01] VITALS (7 sets, daily range): BP systolic 111–135; BP diastolic 57–78; PULSE 55–74; RESP 12–20; TEMP 36.1–36.7; O2SAT 95–99; BMI 31.1
[2020-11-01] MEDS: Lactated Ringers 1,000 ML 80 ML IV (11:56)
--- NOTE | 2020-11-01 12:08 | W.ANESPRE ---
General Info Date of Service Date Performed: 11/01/20 Height: 5 ft 6 in Weight: 87.543 kg Body Mass Index (BMI): 31.1 Surgical Procedure: Operation Date: 11/01/20 14:10 Proposed Procedures Side Surgeon p RIGHT KNEE MANIPULATION Right Lalit Dwyer MD Meds Allergies and Home Medications Allergies Allergy/AdvReac Type Severity Reaction Status Date / Time No Known Allergies Allergy Verified 11/01/20 11:40 Home Medication Medication Instructions Recorded clopidogrel 75 mg PO DAILY tab-cap 05/25/14 escitalopram oxalate [Lexapro] 20 mg PO DAILY tab-cap 05/25/14 atorvastatin 40 mg tablet 40 mg PO HS 09/01/20 buspirone 15 mg tablet 22.5 mg PO BID tab-cap 09/01/20 memantine 10 mg tablet 10 mg PO BID 09/01/20 mirtazapine 15 mg tablet 15 mg PO DAILY 09/01/20 acetaminophen [Tylenol Extra 500 mg PO Q6H PRN #90 tab 09/07/20 Strength] celecoxib [Celebrex] 200 mg PO BID #60 cap 09/07/20 Current Visit Medications: Current Medications Generic Name Dose Route Start Last Admin Trade Name Freq PRN Reason Stop Dose Admin Ringer's Solution 1,000 mls @ 80 mls/hr 11/01/20 06:00 11/01/20 11:56 IV 11/30/20 23:59 80 mls/hr INFUSION JOVAN Administration IV Miscellaneous Supplies 1 each 11/01/20 06:00 Iv Access IV 11/30/20 23:59 DIRECTED JOVAN Sodium Chloride 0 ml 11/01/20 06:00 Normal Saline Flush 10 Ml Syr IV 11/30/20 23:59 PRN PRN Sodium Chloride 0 ml 11/01/20 06:00 Normal Saline 10 Ml Vial IJ 11/30/20 23:59 DIRECTED PRN Sterile Water 0 ml 11/01/20 06:00 Water,Injection,Sterile 10 Ml Vial IJ 11/30/20 23:59 DIRECTED PRN PFSH Active Problems Active Problems: Problem Status Onset Code Primary localized osteoarthritis of right knee M17.11 Arthrofibrosis of total knee arthroplasty T84.82XA History of total right knee replacement Z96.651 Osteoarthritis of left knee M17.12 Medical History Medical History Alzheimer disease Carpal tunnel syndrome on both sides (05/25/14) Frequency of urination (07/06/15) Nocturia more than twice per night (07/06/15) Osteoarthritis of left knee Tendinitis of both rotator cuffs (12/19/16) TIA (transient ischemic attack) Surgical History Surgical History History of total right knee replacement DOS: 09/07/20 Shoulder Manipulation Tobacco Smoking/Tobacco Use Status: Former Tobacco Use Alcohol Alcohol Intake: never Substance Use Substance use: Never Substance use type: does not use Vital Signs and Lab Results Vital Signs Most Recent Vital Signs in EMR: Most Recent Vital Signs Temp Pulse Resp BP Pulse Ox 36.7 C 64 18 135/78 96 11/01/20 11:36 11/01/20 11:36 11/01/20 11:36 11/01/20 11:36 11/01/20 11:36 Lab Results Blood Type / Crossmatch: No Data to Display Complete Blood Count: No Data to Display Complete Metabolic Panel: No Data to Display Liver Function Panel: No Data to Display Coagulation Panel: No Data to Display Cardiac Panel: No Data to Display Arterial Blood Gas: No Data to Display Venous Blood Gas: No Data to Display Pancreas Panel: No Data to Display Thyroid Panel: No Data to Display Infectious Disease: Coronavirus (COVID-19)(PCR) Negative (Negative) 10/31/20 10:26 10/31/20 Coronavirus 2019 Source Nasal/Nares 10/31/20 10:26 10/31/20 Blood Cultures: No Data to Display Toxicology Panel: No Data to Display Imaging and Studies Imaging and Studies Stress Test Summary: 05/20/14:Negative for ischemia. CT Summary: 12/24/18: CTA Head & Neck: MPRESSION: No evidence of aneurysm or significant stenosis. 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 No evidence of an acute infarct or intracranial mass. Anesthesia Assessment and Plan Anesthesia History Personal History: No History of General Anesthesia Family History: No Family History of Anesthesia Complications Exercise Tolerance Exercise Tolerance: Metabolic Equivalents>4 Pertinent Negatives Pertinent Negatives: No Symptoms of GERD, No Major Cardiovascular Symptoms or Complaints, No Major Pulmonary Symptoms or Complaints and No History of CVA/TIA Cardiac & Pulmonary Exam Cardiac Exam: Normal S1/S2 Heart Sounds Pulmonary Exam: Clear Bilateral Breath Sounds Airway Exam Known Difficult Airway: No Mallampati Class: 3 Mouth Opening: Narrow (< 3cm) Thyromental Distance: Less than 3 cm Neck Range of Motion: Full ROM Neck Circumference: Thick Teeth Condition: Normal Dentition ASA Classification ASA Score: ASA 2 Emergency Case?: No NPO Status NPO Status: NPO Clears >2 hours, Solids >8 hours Anesthesia Plan Resuscitation Status: Full Code Anesthesia Technique: General Anesthesia Airway Planned: Natural Airway Monitors Used: Standard Monitors
[2020-11-01] MEDS: Bupivacaine 0.5% Pres-Free 30 ML VIAL (13:40)
--- NOTE | 2020-11-01 13:45 | W.PM.DSUDISC ---
Discharge Plan Disposition Patient Disposition: HOME Condition: Good Discharge Details Reason For Visit: Manipulation Right Knee Attending Provider: Lalit Dwyer Primary Care Provider: Parker Valdivia Jal Meds and New Rx's Prescriptions: New acetaminophen 500 mg capsule 1,000 mg PO Q8H PRN PRNQty: 90 RF: 0 oxycodone 5 mg tablet 5 mg PO Q8H MDD 30mg PRN (Reason: pain) Qty: 6 RF: 0 Continued atorvastatin 40 mg tablet 40 mg PO HS RF: 0 mirtazapine 15 mg tablet 15 mg PO DAILY RF: 0 memantine 10 mg tablet 10 mg PO BID RF: 0 clopidogrel 75 MG tablet 75 mg PO DAILY RF: 0 escitalopram oxalate [Lexapro] 20 MG tablet 20 mg PO DAILY RF: 0 buspirone 15 mg tablet 22.5 mg PO BID RF: 0 celecoxib [Celebrex] 200 mg capsule 200 mg PO BID Qty: 60 RF: 0 Discontinued acetaminophen [Tylenol Extra Strength] 500 mg tablet 500 mg PO Q6H PRNQty: 90 RF: 0 Discharge Instructions Additional Instructions: Knee Manipulation Discharge Instructions Activity: You should begin moving as soon as possible. You may work on flexion but also equally maintain extension. You may bear weight as tolerated, using crutches only for support/comfort. You should apply ice to help with swelling and elevate when possible (especially in the first few days). Dressings: The knee dressing may come down after 48 hours. You may shower and get the wound wet at that time. You should keep the wounds covered with a bandaid until follow-up. Medications: - Rarely does this require any stronger pain medications. - Recommend to take up to 1000mg of Acetaminophen (Tylenol) every 8 hours as needed. Continue your celecoxib (Celebrex) twice daily as well. These larger strength tablets were called in but you also may use [id number]. Follow-up: 7-10 days Referrals: Lalit Dwyer MD [ [facility] STAFF PHYSICIAN] - Equipment/Supplies: Walker Activity:: Activity as Tolerated Diet:: As Tolerated Discharge Orders Discharge Orders: Discharge Order (Routine); Ordered 11/01/20 Ordered By: Georges Krause DS: Diagnosis Discharge Diagnosis (1) Arthrofibrosis of total knee arthroplasty: Status: Acute
--- NOTE | 2020-11-01 13:47 | ROE_ITS ---
Date of service: 11/01/20 Time of Service: 13:47 Operative Note Operative Note DATE OF PROCEDURE: 11/01/20 PRE-OP DIAGNOSIS: Right Knee Arthrofibrosis s/p Replacement POST-OP DIAGNOSIS: same PROCEDURE: Right Knee Manipulation Under Anesthesia SURGEON: Lalit Dwyer ANESTHESIA TYPE: General:No Airway Refer to Anesthesia Record ESTIMATED BLOOD LOSS: 0 PATHOLOGY: none sent TOURNIQUET TIME: 0 COMPLICATIONS: None Patient was transported to: PACU Patient's condition: stable Indications: Solomon is a 79 year old male who is s/p knee replacement. Despite diligent work with physical therapy there has been continued stiffness. To assist with mobility, I offered a manipulation under anesthesia. I discussed the risks of the procedure to include bleeding, pain, recurrent stiffness, fracture. Despite these risks, he elects to proceed. Findings: Preoperative flexion = 90 Postoperative flexion = 125 Preoperative extension = 5 Postoperative extension = 0 Procedure Description: The patient is agreed in the preoperative holding area. Identity was confirmed and the correct side was identified and marked. The consent was reviewed the patient and signed. History and physical was updated. Solomon was taken back to the operating room. The right side was identified as the correct side. A timeout was performed for safe surgery. A general anesthetic was administered. The knee was then prepped with ChloraPrep and an intra-articular injection of 10 cc of 0.5% bupivacaine was administered. Once a muscle relaxant was fully on board manipulation was performed. Pre- manipulation range of motion was noted. A gentle manipulation was performed first into flexion using a very small lever arm and adding gentle and progressive pressure to the tibia. There is audible and palpable crepitus with improvement in range of motion. This was cycled and repeated multiple times. The leg was then brought into extension and gentle anterior posterior pressure was applied with a supported hand behind the proximal tibia and knee. This was brought back into flexion was once again manipulated with gentle and progressive pressure. Final range of motion numbers were recorded, 0-125. A Band-Aid was applied to the injection site. He was awakened from anesthesia and taken to the PACU in stable condition.
--- NOTE | 2020-11-01 14:56 | W.ANESPOSTOP ---
Postoperative Evaluation Date, Time and Location Date Performed: 11/01/20 Time Performed: 14:31 Patient Location: Day Surgery Unit Vital Signs Most Recent Imported Vital Signs: Most Recent Vital Signs Temp Pulse Resp BP Pulse Ox 36.3 C L 58 L 16 132/72 96 11/01/20 14:25 11/01/20 14:25 11/01/20 14:25 11/01/20 14:25 11/01/20 14:25 Pain Score Most Recent Pain Score: Most Recent Pain Score Pain Level 2 11/01/20 14:25 Assessment Mental Status: Awake (Alert & Oriented to Patient Baseline) Airway and Respiratory Function: Patent airway with normal (patient baseline) respiratory exam Cardiovascular Function: Hemodynamically Stable Hydration Status: Adequately Hydrated Nausea & Vomiting: No Nausea or Vomiting Pain: Pain is tolerable per patient Peripheral Nerve Block: Patient did not receive a nerve block
== END 2020-11-01 15:10 | disposition home or self-care (01) ==
PROVIDERS: PCP Family Medicine; Visit Provider Student in an Organized Health Care Education/Training Program
PROC: (CPT 27570; principal; 2020-11-01 14:00)
DX: T84.82XA Fibrosis due to internal orthopedic prosthetic devices, implants and grafts, initial encounter (principal)
CPT/HCPCS: 27570; J1885; J2001; J2704

== ENCOUNTER → 2020-11-14 13:49 | Outpatient (BNVA) | payer MEDICARE, BC, SELFPAY | PROVIDERS: PCP Family Medicine; Referring Provider Family Medicine | DX: T84.82XD Fibrosis due to internal orthopedic prosthetic devices, implants and grafts, subsequent encounter (principal); Z96.651 Presence of right artificial knee joint ==

== ENCOUNTER → 2020-11-18 09:49 | Outpatient (BNVA) | payer MEDICARE, BC, SELFPAY | PROVIDERS: PCP Family Medicine; Referring Provider Family Medicine; Visit Provider Urology | DX: N40.1 Benign prostatic hyperplasia with lower urinary tract symptoms (principal); F03.90 Unspecified dementia, unspecified severity, without behavioral disturbance, psychotic disturbance, mood disturbance, and anxiety | CPT/HCPCS: 99213 ==

== ENCOUNTER → 2020-12-26 12:49 | Outpatient (BNVA) | payer MEDICARE, BC, SELFPAY | PROVIDERS: PCP Family Medicine; Referring Provider Family Medicine | DX: Z47.1 Aftercare following joint replacement surgery (principal); Z96.651 Presence of right artificial knee joint; T84.82XA Fibrosis due to internal orthopedic prosthetic devices, implants and grafts, initial encounter ==

== ENCOUNTER 2021-05-01 14:51 | Outpatient (REF) | payer MEDICARE, SELFPAY ==
[2021-05-01 19:54] LABS: Abs Immature Grans 0.01 10^3/uL (0.0-0.06); Absolute Basophil Count 0.06 10^3/uL (0.0-0.2); Absolute Lymphocyte Count 1.15 10^3/uL (1.2-3.4); Absolute Monocyte Count 0.45 10^3/uL (0.1-0.8); Absolute Neutrophil Count 4.33 10^3/uL (1.2-6.7); Eosinophils % 1.6; HCT 40.5 % (40.0-50.0); HGB 13.4 g/dL (13.5-17.5); Immature Grans % 0.2; Lymphocytes % 18.9; MCH 31.8 pg (27.0-33.0); MCHC 33.1 % (32.0-36.0); MCV 96.2 fL (80-95); MPV 11.2 fL (8.0-11.0); Monocytes % 7.4; Neutrophils % 70.9; Nucleated RBC 0 %; Platelet Count 329 10^3/uL (130-400); RBC 4.21 10^6/uL (4.36-5.78); RDW 12.9 % (11.8-14.1); RDW-SD 46.1 fL
[2021-05-01 20:33] LABS: Calculated LDL 83 mg/dL (<100); Cholesterol 149 mg/dL (<200); Folate 14.1 ng/mL (8.6-20.0); HDL Cholesterol 36 mg/dL (40-60); Triglyceride 153 mg/dL (<150); Vitamin B12 221 pg/mL (193-986)
== END 2021-05-01 14:52 | disposition home or self-care (01) ==
LOC: NCHCN 14:51
PROVIDERS: PCP Family Medicine; Visit Provider Family Medicine
DX: I67.9 Cerebrovascular disease, unspecified (principal); D64.9 Anemia, unspecified
CPT/HCPCS: 80061; 82607; 82746; 85025

== ENCOUNTER 2021-09-11 15:06 | Outpatient (CLI) | payer MEDICARE, SELFPAY ==
--- NOTE | 2021-09-11 11:45 | DI.RAD_ITS ---
Exam(s) XR KNEE RT 2V AP,LAT EXAM: XR KNEE RT 2V AP,LAT CLINICAL HISTORY: ANNUAL F/U R TKA. TECHNIQUE: 2D digital imaging was performed. COMPARISON: CR XR KNEE RT 1V from 09/22/2020 FINDINGS: Two views There is stable position alignment of the components of the prosthesis with no fracture or loosening evident. No radiographic evidence of osteomyelitis IMPRESSION: DATA REPOSITORY: RADIATION DOSE DELIVERED:
== END 2021-09-11 15:07 | disposition home or self-care (01) ==
LOC: DIORS 15:07
PROVIDERS: PCP Family Medicine; Referring Provider Family Medicine; Visit Provider Student in an Organized Health Care Education/Training Program
DX: Z96.651 Presence of right artificial knee joint (principal); T84.82XA Fibrosis due to internal orthopedic prosthetic devices, implants and grafts, initial encounter
CPT/HCPCS: 99212; 73560

== ENCOUNTER → 2022-03-01 13:14 | Outpatient (BNVA) | payer MEDICARE, SELFPAY | PROVIDERS: PCP Family Medicine; Referring Provider Family Medicine; Visit Provider Physical Therapy Assistant | DX: Z80.0 Family history of malignant neoplasm of digestive organs (principal); Z12.11 Encounter for screening for malignant neoplasm of colon ==

== ENCOUNTER 2022-05-02 12:38 | Outpatient (REF) | payer MEDICARE, SELFPAY ==
[2022-05-02 15:08] LABS: HCT 42.4 % (40.0-50.0); HGB 14.6 g/dL (13.5-17.5); MCH 32.5 pg (27.0-33.0); MCHC 34.4 % (32.0-36.0); MCV 94 fL (80-95); Platelet Count 278 10^3/uL (130-400); RBC 4.49 10^6/uL (4.36-5.78); RDW 12.9 % (11.8-14.1); RDW-SD 45.1 fL; WBC 6.58 10^3/uL (4.4-10.8)
[2022-05-02 16:21] LABS: Vitamin B12 838 pg/mL (193-986)
[2022-05-02 18:12] LABS: Hemoglobin A1C 6.4 % (<5.7)
== END 2022-05-02 12:39 | disposition home or self-care (01) ==
LOC: NCHCN 12:38
PROVIDERS: PCP Family Medicine; Visit Provider Family Medicine
DX: D64.9 Anemia, unspecified (principal); I67.9 Cerebrovascular disease, unspecified
CPT/HCPCS: 85027; 82607; 83036

== ENCOUNTER 2022-12-15 16:45 | Outpatient (REF) | payer MEDICARE, SELFPAY ==
[2022-12-15 17:10] LABS: HCT 38.5 % (40.0-50.0); MCH 31.9 pg (27.0-33.0); MCHC 33.8 % (32.0-36.0); MCV 95 fL (80-95); MPV 10.6 fL (8.0-11.0); Platelet Count 298 10^3/uL (130-400); RBC 4.07 10^6/uL (4.36-5.78); RDW 13.5 % (11.8-14.1); WBC 8.32 10^3/uL (4.4-10.8)
[2022-12-15 17:12] LABS: Bilirubin Negative (Negative); Blood Large (Negative); Clarity Sl Cloudy (Clear); Glucose Negative (Negative); Ketones Negative (Negative); Leukocyte Esterase Negative (Negative); Nitrite Negative (Negative); Urobilinogen 0.2 mg/dL (Up to 0.2); pH 5.5 (5-8)
[2022-12-15 17:16] LABS: ALT 27 U/L (16-63); AST 25 U/L (15-37); Albumin 4.2 g/dL (3.4-5.0); Alkaline Phosphatase 106 U/L (46-116); Anion Gap 10.6 mmol/L (3-11); BUN 11 mg/dL (7-18); Bilirubin, Total 0.7 mg/dL (0.2-1.0); CO2 27.4 mmol/L (21.0-32.0); Calcium 9.8 mg/dL (8.5-10.1); Chloride 102 mmol/L (98-107); Estimated GFR 76.08 (mL/min/1.73m2); Glucose 101 mg/dL (74-106); Magnesium 1.9 mg/dL (1.8-2.4); Potassium 4.4 mmol/L (3.5-5.1); Sodium 140 mmol/L (136-145); Total Protein 7.2 g/dL (6.4-8.2)
[2022-12-15 17:23] LABS: Bacteria Negative HPF (Negative); C & S Indicated? No; Casts Negative LPF (Negative); Crystals Negative HPF (Negative); Epithelial Cells Rare HPF (Negative); Mucus Negative (Negative); RBC 20-50 HPF (0-2); WBC 0-2 HPF (0-5)
== END 2022-12-15 16:46 | disposition home or self-care (01) ==
LOC: LBN 16:45
PROVIDERS: PCP Family Medicine; Visit Provider Family Medicine
DX: F41.1 Generalized anxiety disorder (principal); G30.9 Alzheimer's disease, unspecified; Z86.79 Personal history of other diseases of the circulatory system; D64.9 Anemia, unspecified; R82.998 Other abnormal findings in urine
CPT/HCPCS: 80053; 85027; 81003; 81015; 83735

== ENCOUNTER 2023-03-22 17:51 | Outpatient (REF) | payer MEDICARE, SELFPAY ==
[2023-03-22 18:52] LABS: Abs Immature Grans 0.01 10^3/uL (0.0-0.06); Absolute Basophil Count 0.06 10^3/uL (0.0-0.2); Absolute Eosinophil Count 0.15 10^3/uL (0.0-0.7); Absolute Monocyte Count 0.51 10^3/uL (0.1-0.8); Absolute Neutrophil Count 4.88 10^3/uL (1.2-6.7); Basophils % 0.9; Eosinophils % 2.2; HCT 39.2 % (40.0-50.0); HGB 13.3 g/dL (13.5-17.5); Immature Grans % 0.1; Lymphocytes % 18.8; MCH 32.3 pg (27.0-33.0); MCHC 33.9 % (32.0-36.0); MCV 95 fL (80-95); MPV 10.8 fL (8.0-11.0); Monocytes % 7.4; Neutrophils % 70.6; Platelet Count 282 10^3/uL (130-400); RBC 4.12 10^6/uL (4.36-5.78); RDW-SD 45.7 fL; WBC 6.91 10^3/uL (4.4-10.8)
[2023-03-22 19:02] LABS: ALT 16 U/L (16-63); AST 16 U/L (15-37); Albumin 4.1 g/dL (3.4-5.0); Alkaline Phosphatase 107 U/L (46-116); Anion Gap 8.8 mmol/L (3-11); BUN 15 mg/dL (7-18); Bilirubin, Total 0.7 mg/dL (0.2-1.0); CO2 29.2 mmol/L (21.0-32.0); Calcium 9.6 mg/dL (8.5-10.1); Chloride 104 mmol/L (98-107); Estimated GFR 75.61 (mL/min/1.73m2); Glucose 79 mg/dL (74-106); Potassium 4.2 mmol/L (3.5-5.1); Sodium 142 mmol/L (136-145); Total Protein 7.1 g/dL (6.4-8.2)
== END 2023-03-22 17:52 | disposition home or self-care (01) ==
LOC: LBN 17:51
PROVIDERS: PCP Family Medicine; Visit Provider Family Medicine
DX: R53.83 Other fatigue (principal)
CPT/HCPCS: 80053; 85025

== ENCOUNTER 2023-10-15 17:46 | Outpatient (REF) | payer MEDICARE, SELFPAY ==
[2023-10-15 18:37] LABS: Abs Immature Grans 0.01 10^3/uL (0.0-0.06); Absolute Basophil Count 0.03 10^3/uL (0.0-0.2); Absolute Monocyte Count 0.46 10^3/uL (0.1-0.8); Absolute Neutrophil Count 4.29 10^3/uL (1.2-6.7); Basophils % 0.5 %; Eosinophils % 1.6 %; HCT 39.5 % (40.0-50.0); HGB 13.5 g/dL (13.5-17.5); Immature Grans % 0.2 %; Lymphocytes % 19.7 %; MCH 32.6 pg (27.0-33.0); MCHC 34.2 % (32.0-36.0); MCV 95 fL (80-95); MPV 11.1 fL (8.0-11.0); Monocytes % 7.6 %; Neutrophils % 70.4 %; Platelet Count 256 10^3/uL (130-400); RBC 4.14 10^6/uL (4.36-5.78); WBC 6.09 10^3/uL (4.4-10.8)
== END 2023-10-15 17:47 | disposition home or self-care (01) ==
LOC: LBN 17:46
PROVIDERS: PCP Family Medicine; Visit Provider Family Medicine
DX: R68.89 Other general symptoms and signs (principal)
CPT/HCPCS: 85025

== ENCOUNTER → 2023-10-22 09:26 | Outpatient (BNVA) | payer MEDICARE, SELFPAY | PROVIDERS: PCP Family Medicine; Referring Provider Family Medicine; Visit Provider Podiatrist | DX: B35.3 Tinea pedis (principal); B35.1 Tinea unguium; L60.3 Nail dystrophy; M79.671 Pain in right foot; M79.672 Pain in left foot | CPT/HCPCS: 11721 ==

== ENCOUNTER → 2024-02-19 15:30 | Outpatient (BNVA) | payer MEDICARE, SELFPAY | PROVIDERS: PCP Family Medicine; Referring Provider Family Medicine; Visit Provider Podiatrist | DX: L60.3 Nail dystrophy (principal); B35.3 Tinea pedis; B35.1 Tinea unguium; M79.671 Pain in right foot; M79.672 Pain in left foot; D64.9 Anemia, unspecified; I73.89 Other specified peripheral vascular diseases; R60.0 Localized edema; R20.8 Other disturbances of skin sensation | CPT/HCPCS: 11056; 11721 ==

== ENCOUNTER 2024-05-29 16:48 | Emergency (ER) | payer MEDICARE, SELFPAY ==
[2024-05-29] VITALS (15 sets, daily range): BP systolic 121–127; BP diastolic 46–53; PULSE 60–84; RESP 19–23; TEMP 37.4; O2SAT 91–95
--- NOTE | 2024-05-29 17:00 | RT.EKG_ITS ---
APPROVED REPORT Exam: Resting ECG Reason for Exam: [facility] Patient Location: E HR:72 bpm ECG Measurements Heart Rate 72 AXIS IL 249 P 35 QRSd 101 QRS 36 QT 386 T -2 QTc 425 Conclusion Sinus rhythm...normal P axis, V-rate 60- 99 Atrial premature complex...SV complex w/ short R-R interval Prolonged IL interval...IL >220, V-rate 50- 90 Low voltage, precordial leads...precordial leads <1.0mV no ST segment or T wave abnormalities to suggest occlusive DC
[2024-05-29 17:40] LABS: BE (Venous) 4 mmol/L (-2-3); HCO3 (Venous) 29 mmol/L (23-28); Lactate 1.3 mmol/L (<or=2.0); O2 Sat (Venous) 44 %; TCO2 (Venous) 26 mmol/L (24-29); pCO2 (Venous) 48 mmHg (41-51); pH (Venous) 7.39 (7.31-7.41); pO2 (Venous) 25 mmHg
--- NOTE | 2024-05-29 17:41 | ED.GENADUL_ITS ---
Discharge Plan Disposition Patient Disposition: Home Condition: Good Discharge Details Clinical Impression: Pneumonia Primary Care Provider: Varsha Chavez ED Provider: Sheila Jesus Home Meds and New Rx's Prescriptions: New cefpodoxime 200 mg tablet 200 mg PO BID 9 Days Qty: 18 0RF Rx Instructions: must administer with a meal/food azithromycin 250 mg tablet 250 mg PO DAILY 9 Days Qty: 9 0RF Rx Instructions: start on day 2 of therapy Continued escitalopram oxalate 10 mg tablet 10 mg PO DAILY mirtazapine 7.5 mg tablet 7.5 mg PO QHS Qty: 30 4RF clopidogrel 75 MG tablet 75 mg PO DAILY buspirone 15 mg tablet 22.5 mg PO BID risperidone 1 mg tablet 1 mg PO BID Qty: 45 4RF Rx Instructions: Give 0.5 mg at 16:30 daily Give 0.5-1 mg at HS acetaminophen 500 mg capsule 1,000 mg PO Q8H PRN PRNQty: 90 0RF Discharge Instructions Instructions: Pneumonia, Adult ED Additional Instructions: Azithromycin once a day for the next 10 days. Cefpodoxime twice a day for the next 10 days. Call your primary care doctor to schedule an appointment to be seen within the next 72 hours to followup on your visit here. At that visit discuss how long to continue taking the antibiotics. Return to the emergency department for new or worsening symptoms including difficulty breathing, altered mental status, worsening weakness, or if you have any other concerns. Referrals: Varsha Chavez [Primary Care Provider] - [facility] General Mode of arrival: ambulatory . Date/Time Provider Initiated Documentation: 05/29/24 16:49 . Limitations to Documentation: altered mental status . Information obtained by: patient, family and old records reviewed ( visit note today) . HPI Narrative: 83yo M with hx dementia, PVD, presenting for fever and generalized weakness. History primarily from caregiver at bedside; patient will answer yes/no questions. For the past 2-3 days he has been weaker than usual, still able to walk with walker but having more difficulty than usual. Decreased PO intake and seems 'tired'. Another person in the home with pneumonia. Patient with intermittent cough but no other symptoms. Afebrile at home (temp of 101.5 at urgent care). No vomiting. No difficulty breathing. No complaints of pain. Otherwise in his usual state of health. To me patient denies pain including chest pain or abdominal pain, difficulty breathing, and nausea. Related Data Home Medications ?Medication ?Instructions ?Recorded ?Confirmed clopidogrel 75 mg tablet 75 mg PO DAILY 05/25/14 05/29/24 buspirone 15 mg tablet 22.5 mg PO BID 09/01/20 05/29/24 acetaminophen 500 mg capsule 1,000 mg (2 x 500 mg) PO Q8H PRN 11/01/20 05/29/24 PRN #90 caps escitalopram oxalate 10 mg tablet 10 mg PO DAILY 03/27/24 05/29/24 mirtazapine 7.5 mg tablet 7.5 mg PO QHS #30 tabs 03/27/24 05/29/24 risperidone 1 mg tablet 1 mg PO BID #45 tabs 04/10/24 05/29/24 azithromycin 250 mg tablet 250 mg PO DAILY 9 days #9 tabs 05/29/24 cefpodoxime 200 mg tablet 200 mg PO BID 9 days #18 tabs 05/29/24 Previous Rx's ?Medication ?Instructions ?Recorded acetaminophen 500 mg capsule 1,000 mg (2 x 500 mg) PO Q8H PRN 11/01/20 PRN #90 caps mirtazapine 7.5 mg tablet 7.5 mg PO QHS #30 tabs 03/27/24 risperidone 1 mg tablet 1 mg PO BID #45 tabs 04/10/24 azithromycin 250 mg tablet 250 mg PO DAILY 9 days #9 tabs 05/29/24 cefpodoxime 200 mg tablet 200 mg PO BID 9 days #18 tabs 05/29/24 Allergies Allergy/AdvReac Type Severity Reaction Status Date / Time No Known Allergies Allergy Verified 05/29/24 17:31 General Stated Complaint: Fever CANDE: 3 Review of Systems Narrative: see HPI Exam Narrative Exam Narrative: General: Alert, chronically ill appearing, in no acute distress Head: Normocephalic, atraumatic. Bilateral conjuctival discharge Neck: Trachea midline, ?Neck supple. No neck stiffness or pain with passive ranging ENT: ?MMM.? No oropharygeal lesions or exudate. Cardiac: ?RRR, no murmurs appreciated Resp: No respiratory distress. CTAB. Abd: ?Soft, non-distended, nontender : ?No suprapubic tenderness. No CVA tenderness. Extremities: ?No deformities.? No peripheral edema. Neurologic: GCS 14 (E4 V4 M6). ? Moves all extremities freely against gravity Skin: Non blanchable erythema to bilateral hips. No skin breakdown. Course Vital Signs Vital signs: Vital Signs Temperature 37.4 C 05/29/24 16:57 Pulse 69 05/29/24 16:57 Respiratory Rate 22 05/29/24 16:57 Blood Pressure 121/46 L 05/29/24 16:57 Temperature 37.4 C 05/29/24 17:12 Pulse 69 05/29/24 17:12 Respiratory Rate 22 05/29/24 17:12 Blood Pressure 121/46 L 05/29/24 17:12 Blood Pressure Position Sitting 05/29/24 17:12 Oxygen Delivery Method Room Air 05/29/24 17:12 Oxygen Flow Rate 0 05/29/24 17:12 Medical Decision Making 83yo M with hx dementia, PVD, presenting for fever and generalized weakness. History primarily from caregiver at bedside; patient will answer yes/no questions. Has had 2-3 days of generalized weakness, fatigue, and decreased PO intake as well as intermittent cough with no other focal symptoms. Presented initially to where he was found to have a temp of 101.5 and was reportedly appeared unwell. Afebrile here (tympanic) though he is somewhat warm centrally to the touch; he is noncompliant with oral temp. Will presume UC temp is accurate and forgo rectal temp here. He is chronically ill appearing but nontoxic. No abdominal tenderness. Lungs CTAB. GCS 14 and aside from lack of energy at his baseline mental status. Not overtly septic; would not treat empirically. No indication of cellulitis. Not suggestive of meningitis or encephalitis. Will workup for fever. -EKG from triage rate 70's, 1st degree heart block, no ST segment or T wave abnormalities to suggest occlusive NH. -CXR independently reviewed; no focal pneumonia or pneumothorax on my view, radiology read below with with possible RLL infiltrate vs atelectasis. Given cough, fever, will treat for pneumonia with cefpo and doxycycline (cefpo would also cover UTI if present) -Respiratory viral swab negative. -Labs reviewed as below, CBC with no leukocytosis and mild anemia (roughly baseline on [facility] record review), CMP with no actionable abnormalities, VBG reassuring, lactate normal, UA not infected. On reassessment patient is well appearing with reassuring vital signs. Possible pneumonia vs viral URI; given age and risk factors will elect to treat with 10 course of abx for pneumonia. Is on QT prolonging meds; does have normal QT on EKG and so would not avoid azithromycin at this time. Supportive son at bedside. Son and caregiver both report that patient seems to be feeling better and is acting more like his usual self. Given his age could possibly justify observation stay in hospital; family would like to go home which I think is very reasonable as he has no hypoxia, normal vital signs, and seems to be acting like his usual self. Discharged home; discharge instructions and return precautions were reviewed with son and caregiver who verbalized understanding. All questions were answered and they are in full agreement with the plan. Imaging Data Radiologic Study: Imaging: X-Ray Radiologist's impression: IMPRESSION: Mild increased markings in the right lung base either atelectatic or mild infiltrate. Lab Data Lab results reviewed: Yes I reviewed the patient's lab results. Labs: Laboratory Tests Range/Units 05/29/24 17:23 WBC (4.4-10.8) 10^3/uL 4.18 L RBC (4.36-5.78) 10^6/uL 3.89 L Hgb (13.5-17.5) g/dL 12.5 L Hct (40.0-50.0) % 38.2 L MCV (80-95) fL 98 H MCH (27.0-33.0) pg 32.1 MCHC (32.0-36.0) % 32.7 RDW (11.8-14.1) % 13.2 Plt Count (130-400) 10^3/uL 252 MPV (8.0-11.0) fL 9.9 Immature Gran % % 0.5 Neutrophils % % 70.8 Lymphocytes % % 13.6 Monocytes % % 11.7 Eosinophils % % 2.4 Basophils % % 1.0 Nucleated RBC % (0.0-0.3) % 0.0 Absolute Neutrophils (1.2-6.7) 10^3/uL 2.96 Absolute Lymphocytes (1.2-3.4) 10^3/uL 0.57 L Absolute Monocytes (0.1-0.8) 10^3/uL 0.49 Absolute Eosinophils (0.0-0.7) 10^3/uL 0.10 Absolute Basophils (0.0-0.2) 10^3/uL 0.04 VBG pH (7.31-7.41) 7.39 VBG pCO2 (41-51) mmHg 48 VBG pO2 mmHg 25 VBG HCO3 (23-28) mmol/L 29 H VBG Total CO2 (24-29) mmol/L 26 VBG O2 Saturation % 44 VBG Base Excess (-2-3) mmol/L 4 H VBG Lactate (<or=2.0) mmol/L 1.3 Sodium (136-145) mmol/L 143 Potassium (3.5-5.1) mmol/L 3.9 Chloride (98-107) mmol/L 105 Carbon Dioxide (21.0-32.0) mmol/L 28.4 Anion Gap (3-11) mmol/L 9.6 BUN (7-18) mg/dL 14 Creatinine (0.70-1.30) mg/dL 1.0 Est GFR (CKD-EPI 2020) (mL/min/1.73m2) 75.14 Glucose (74-106) mg/dL 103 Calcium (8.5-10.1) mg/dL 9.3 Total Bilirubin (0.2-1.0) mg/dL 0.9 AST (15-37) U/L 38 H ALT (16-63) U/L 20 Alkaline Phosphatase (46-116) U/L 114 Total Protein (6.4-8.2) g/dL 7.2 Albumin (3.4-5.0) g/dL 3.6 Quality:SDOH Health Related Social Needs: No Data to Display PFSH All Active Problems (Updated 05/29/24 @ 19:38 by Sheila Jesus MD) Pneumonia (Acute) Lower respiratory infection (Acute) Fever (Acute) Palliative care patient (Acute) Vascular dementia (Acute) PVD (peripheral vascular disease) (Chronic) Pain in both feet (Acute) Pain due to onychomycosis of nail (Acute) Onychomycosis (Acute) Skin lesion (Acute) Right lateral foot Generalized anxiety disorder (Acute) Hyperlipidemia (Acute) Alzheimer disease (Chronic) Impacted cerumen, bilateral (Acute) Sensorineural hearing loss (SNHL) of both ears (Acute) Tinea pedis (Acute) Medical History Screening for colon cancer Nail dystrophy Cerebrovascular disease Tinea corporis Varicocele left testis History of intracranial aneurysm Sleep apnea Anemia, mild Neutropenia BPH loc w urin obs/LUTS Carpal tunnel syndrome on both sides (05/25/14) Frequency of urination (07/06/15) Nocturia more than twice per night (07/06/15) Tendinitis of both rotator cuffs (12/19/16) Osteoarthritis of left knee TIA (transient ischemic attack) Surgical History Arthrofibrosis of total knee arthroplasty RIGHT S/P Manipulation: 11/01/2020 History of total right knee replacement DOS: 09/07/20 Shoulder Manipulation Family History Mother Colon cancer Father Lung cancer Social History Smoking/Tobacco Use Status: Former Tobacco Use Quit Date: 03/18/00 Smoking risk assessment performed?: Yes Alcohol Intake: never Drug use: Never Substance use type: does not use Do you feel safe at home: Yes Do you feel safe in your relationship?: Yes Additional Social history: Unable to assess joellen
[2024-05-29 17:43] LABS: Abs Immature Grans 0.02 10^3/uL (0.0-0.06); Absolute Basophil Count 0.04 10^3/uL (0.0-0.2); Absolute Lymphocyte Count 0.57 10^3/uL (1.2-3.4); Absolute Monocyte Count 0.49 10^3/uL (0.1-0.8); Absolute Neutrophil Count 2.96 10^3/uL (1.2-6.7); Eosinophils % 2.4 %; HCT 38.2 % (40.0-50.0); HGB 12.5 g/dL (13.5-17.5); Immature Grans % 0.5 %; Lymphocytes % 13.6 %; MCH 32.1 pg (27.0-33.0); MCHC 32.7 % (32.0-36.0); MCV 98 fL (80-95); MPV 9.9 fL (8.0-11.0); Monocytes % 11.7 %; Neutrophils % 70.8 %; Platelet Count 252 10^3/uL (130-400); RBC 3.89 10^6/uL (4.36-5.78); RDW 13.2 % (11.8-14.1); RDW-SD 47.1 fL; WBC 4.18 10^3/uL (4.4-10.8)
[2024-05-29 17:59] LABS: ALT 20 U/L (16-63); AST 38 U/L (15-37); Albumin 3.6 g/dL (3.4-5.0); Alkaline Phosphatase 114 U/L (46-116); Anion Gap 9.6 mmol/L (3-11); BUN 14 mg/dL (7-18); Bilirubin, Total 0.9 mg/dL (0.2-1.0); CO2 28.4 mmol/L (21.0-32.0); Calcium 9.3 mg/dL (8.5-10.1); Chloride 105 mmol/L (98-107); Estimated GFR 75.14 (mL/min/1.73m2); Glucose 103 mg/dL (74-106); Potassium 3.9 mmol/L (3.5-5.1); Sodium 143 mmol/L (136-145); Total Protein 7.2 g/dL (6.4-8.2)
--- NOTE | 2024-05-29 18:05 | DI.RAD_ITS ---
Exam(s) XR CHEST 2V PA LATERAL EXAM: XR CHEST 2V PA LATERAL CLINICAL HISTORY: fever. TECHNIQUE: 2D digital imaging was performed. COMPARISON: CT CT BRAIN NECK CTA from 12/24/2018 FINDINGS: 2 views: Heart size is normal. The mediastinum is not widened. Left lung appears clear. There mild increased markings in the right lung base. Possible mild infilt rate. No pleural effusions. No pulmonary edema. No fractures. No pneumothorax IMPRESSION: Mild increased markings in the right lung base either atelectatic or mild infiltrate. DATA REPOSITORY: RADIATION DOSE DELIVERED:
[2024-05-29] MEDS: Azithromycin 250 MG TAB 500 MG PO (19:08)
[2024-05-29] MEDS: Acetaminophen 325 MG TAB 650 MG PO (19:08)
[2024-05-29] MEDS: Cefpodoxime 200 MG TAB PO (19:09)
[2024-05-29 19:23] LABS: Bilirubin Negative (Negative); Blood Negative (Negative); Clarity Clear (Clear); Glucose Negative (Negative); Ketones Negative (Negative); Leukocyte Esterase Negative (Negative); Nitrite Negative (Negative); Specific Gravity >= 1.030 (1.005-1.025); Urobilinogen 0.2 mg/dL (Up to 0.2)
[2024-05-29] MEDS: Cefpodoxime 200 MG TAB 400 MG PO (19:55)
[2024-05-29] MEDS: Azithromycin 250 MG TAB PO (19:56)
--- NOTE | 2024-06-01 11:06 | NUR.NOTE ---
Accessed Pt chart to print off the Providers note and fax it to [facility]. Pt is there for his follow up visit.
== END 2024-05-29 19:59 | disposition home or self-care (01) ==
PROVIDERS: Emergency Provider Student in an Organized Health Care Education/Training Program; PCP Family Medicine
DX: J18.9 Pneumonia, unspecified organism (principal); R53.83 Other fatigue; R50.9 Fever, unspecified
CPT/HCPCS: 36415; 80053; 82805; 87426; 93005; 99285; 71046; 81003; 83605; 85025; 93010; 99284

== ENCOUNTER → 2024-06-24 15:20 | Outpatient (BNVA) | payer MEDICARE, SELFPAY | PROVIDERS: PCP Family Medicine; Referring Provider Family Medicine; Visit Provider Podiatrist | DX: B35.1 Tinea unguium (principal); B35.3 Tinea pedis; I73.89 Other specified peripheral vascular diseases; M79.671 Pain in right foot; M79.672 Pain in left foot; D64.9 Anemia, unspecified; L60.3 Nail dystrophy; E53.8 Deficiency of other specified B group vitamins; R20.8 Other disturbances of skin sensation; R23.8 Other skin changes; R60.0 Localized edema; L60.2 Onychogryphosis; L60.8 Other nail disorders | CPT/HCPCS: 11056; 11721 ==

== ENCOUNTER 2024-10-01 12:27 | Outpatient (REF) | payer MEDICARE, SELFPAY ==
[2024-10-01 16:03] LABS: Abs Immature Grans 0.00 10^3/uL (0.0-0.06); HCT 40.8 % (40.0-50.0); HGB 13.5 g/dL (13.5-17.5); Immature Grans % 0.0 %; MCH 32.0 pg (27.0-33.0); MCHC 33.1 % (32.0-36.0); MCV 97 fL (80-95); MPV 11.7 fL (8.0-11.0); Platelet Count 248 10^3/uL (130-400); RBC 4.22 10^6/uL (4.36-5.78); RDW 13.5 % (11.8-14.1); RDW-SD 48.1 fL; WBC 5.69 10^3/uL (4.4-10.8)
[2024-10-01 16:25] LABS: ALT 17 U/L (16-63); AST 16 U/L (15-37); Albumin 3.8 g/dL (3.4-5.0); Alkaline Phosphatase 100 U/L (46-116); Anion Gap 8.1 mmol/L (3-11); BUN 31 mg/dL (7-18); Bilirubin, Total 0.3 mg/dL (0.2-1.0); CO2 28.9 mmol/L (21.0-32.0); Calcium 9.2 mg/dL (8.5-10.1); Chloride 106 mmol/L (98-107); Estimated GFR 85.27 (mL/min/1.73m2); Glucose 129 mg/dL (74-106); Potassium 4.2 mmol/L (3.5-5.1); Sodium 143 mmol/L (136-145); Total Protein 7.3 g/dL (6.4-8.2)
== END 2024-10-01 12:28 | disposition home or self-care (01) ==
LOC: NCHCN 12:27
PROVIDERS: PCP Family Medicine; Visit Provider Student in an Organized Health Care Education/Training Program
DX: G30.9 Alzheimer's disease, unspecified (principal); F02.80 Dementia in other diseases classified elsewhere, unspecified severity, without behavioral disturbance, psychotic disturbance, mood disturbance, and anxiety
CPT/HCPCS: 80053; 85025

== ENCOUNTER → 2024-10-27 13:54 | Outpatient (BNVA) | payer MEDICARE, SELFPAY | PROVIDERS: PCP Family Medicine; Referring Provider Family Medicine; Visit Provider Podiatrist | DX: M79.674 Pain in right toe(s) (principal); B35.3 Tinea pedis; B35.1 Tinea unguium; M79.675 Pain in left toe(s); I73.9 Peripheral vascular disease, unspecified | CPT/HCPCS: 11721 ==